=== PATIENT | male | born 2000 | race Caucasian/White ===

== ENCOUNTER 2019-07-11 15:14 | Emergency (ER) | payer SELFPAY ==
[~2019-07-11] VITALS: Ht 180.3 cm; Wt 79.5 kg
[~2019-07-11 15:14] MED LIST: AMOXICILLIN 50500 MG PO
[2019-07-11 16:49] LABS: BASO % 0.3 % (0.0-2.0); EOS % 0.1 % (0-4.0); GRAN # 5.8 (1.4-6.5); GRAN % 74.2 % (42.2-75.2); HEMATOCRIT 44.3 % (36.0-47.0); HEMOGLOBIN 14.8 g/dl (12.5-16.1); LYMPH # 0.9 (1.2-3.4); LYMPH % 11.4 % (20.0-51.0); MEAN CELL VOLUME 95 fl (80.0-95.0); MEAN CORPUSCULAR HEMOGLOBIN 32 pg (26.0-32.0); MEAN CORPUSCULAR HGB CONC 33 g/dl (33.0-37.0); MEAN PLATELET VOLUME 9.1 fl (7.4-10.4); MONO # 1.1 (0.1-0.6); MONO % 13.6 % (1.7-9.3); PLATELET COUNT 261 K/mm3 (130-400); RED BLOOD COUNT 4.65 M/mm3 (4.20-5.60)
[2019-07-11 17:01] LABS: ALBUMIN 4.3 gm/dL (3.5-5.0); BILIRUBIN,TOTAL 0.5 mg/dL (0.0-1.0); CALCIUM 9.3 mg/dL (8.4-10.2); CREATININE, serum 0.84 (0.66-1.25); POTASSIUM 4.2 mmol/L (3.4-5.0); TOTAL PROTEIN 7.6 gm/dL (6.4-8.2)
[2019-07-11 17:08] LABS: STREP SCREEN NEGATIVE
[2019-07-11 17:32] VITALS: TEMP 100.8
[2019-07-11 17:35] VITALS: BP 123/61; PULSE 70
== END 2019-07-11 17:44 | disposition home or self-care (01) ==
LOC: COL.ER 15:14
PROVIDERS: Emergency Medicine
DX: J03.90 Acute tonsillitis, unspecified (principal)
CPT/HCPCS: J0696; J1885; J3010; J7030

== ENCOUNTER 2019-07-16 11:45 | Emergency (ER) | payer SELFPAY ==
[~2019-07-16] VITALS: Ht 180.3 cm; Wt 79.5 kg
[2019-07-16 12:07] VITALS: TEMP 98.1
[2019-07-16 14:37] LABS: MONOSCREEN POSITIVE
[2019-07-16 14:45] VITALS: BP 131/57; PULSE 87
== END 2019-07-16 14:45 | disposition home or self-care (01) ==
LOC: COL.ER 11:45
PROVIDERS: Physician Assistant
DX: B37.2 Candidiasis of skin and nail (principal); F17.210 Nicotine dependence, cigarettes, uncomplicated